=== PATIENT | female | born 1950 | race Caucasian/White ===

== ENCOUNTER 2020-04-04 19:05 | Inpatient (IN) | payer OTHER ==
[~2020-04-04] VITALS: Ht 61 cm; Wt 5.0 kg
[2020-04-04] MEDS ORDERED: [UNRECOGNIZED DRUG - OTHER] (19:50)
[2020-04-04] MEDS ORDERED: NEXIUM (19:51)
--- NOTE | 2020-04-04 19:52 | NUR ---
PTE SE RECIBE POR DOLOR DE [place] DOLOR COSTADO DERECHO Y NO PUEDE EXPECTORAL REFIERE PTE.
--- NOTE | 2020-04-04 22:10 | NUR ---
SE ORIENTA PTE SOBRE TX MEDICO EL CUAL REFIERE ENTENDER.SE LE EXTRAEN MUESTRAS BAJO MEDIDAS ASEPTICAS,SE CANALIZA Y SE ADMINISTRA MEDICAMENTO TUNDE ORDEN MEDICA.SE NOTIFICA CT PENDIENTE.
--- NOTE | 2020-04-05 06:49 | NUR ---
SE BRAIN COOL.
--- NOTE | 2020-04-05 07:00 | NUR ---
PTE ALERTA Y ORIENTADA POR SHADI DIMENSIONES. TIENE AREA DE VENOPUNCION PATENTE, CARLYN DE EDEMA Y ERITEMA CON IV FLUID DE .9NSS @125ML/HR. PENDIENTE ABG'S. CONSULTA CON DR.LUIS NEUMANN POR PULMONIA POR COVID. TIENE CANULA A 2LT Y TIENE ALBUTEROL CADA 6HR. PTE EN JARROD BAJA, BARANDAS ELEVADAS, FRENOS AJUSTADOS Y TIMBRE ACCESIBLE. SE MANTIENE BAJO OBSERVACION POR CAMBIOS.
--- NOTE | 2020-04-05 07:40 | NUR ---
SE RECIBE PACIENTE FEMENINA DE 69 ANOS DE EDAD. AL MOMENTO DE AUTUMN, PACIENTE SE ENCUENTRA EN CAMA CON BARANDAS ELEVADAS DESPIERTA Y ALERTA. AREA DE [id number] PATENTE EN BRAZO DERECHO CON ANGIO#2O BAJANDO UN 0.9NSS A 150ML POR HORA CARLYN DE EDEMAS, ENROJECIMIENTO Y DOLOR AL TACTO. SE OBSERVA PACIENTE CON CANULA NASAL A 2 LITROS. SE EVELIA SIGNOS VITALES Y SE ORIENTA A PACIENTES SOBRE MEDIDAS DE SEGURIDAD. PACIENTE REFIERE ENTENDER SOBRE LO ORIENTADO, TAMBIEN REFIERE SENTIRSE MEJOR. SE MANTIENE PACIENTE EN OBSERVACION PARA CAMBIOS SIGNIFICATIVOS EN HERRERA CONDICION
[2020-04-08] MEDS ORDERED: IRBESARTAN75 MG (08:08)
[2020-04-08] MEDS ORDERED: NEXIUM2.5 MG (08:09)
[2020-04-14] MEDS ORDERED: ZINC SULFATE220 M2 PO (10:59)
[2020-04-14] MEDS ORDERED: VITAMIN C500 M1 PO (10:59)
[2020-04-14] MEDS ORDERED: PEPCID AC20 MG PO (11:00)
[2020-04-14] MEDS ORDERED: MELATONIN5 M2 PO (11:00)
[2020-04-14] MEDS ORDERED: ECOTRIN81 MG PO (11:10)
[2020-04-14] MEDS ORDERED: VITAMIN D3125 MC2 PO (11:10)
== END 2020-04-14 14:20 | disposition home or self-care (01) | DRG 177 ==
LOC: ER 19:05 → MEDJ 04-05 11:31
PROVIDERS: ADMIT Internal Medicine; ATTEND Internal Medicine
PROC: 4A033R1 Measurement of Arterial Saturation, Peripheral, Percutaneous Approach (ICD-10-PCS; principal; 2020-04-05)
PROC: 8E0ZXY6 Isolation (ICD-10-PCS; 2020-04-05)
PROC: 3E0F7SF Introduction of Other Gas into Respiratory Tract, Via Natural or Artificial Opening (ICD-10-PCS; 2020-04-05)
PROC: 4A12X4Z Monitoring of Cardiac Electrical Activity, External Approach (ICD-10-PCS; 2020-04-05)
PROC: 3E0F7GC Introduction of Other Therapeutic Substance into Respiratory Tract, Via Natural or Artificial Opening (ICD-10-PCS; 2020-04-07)
DX: U07.1 COVID-19 (principal); J12.89 Other viral pneumonia; I10 Essential (primary) hypertension; R19.7 Diarrhea, unspecified; R09.02 Hypoxemia

== ENCOUNTER 2021-02-10 10:58 | Outpatient (CLI) | payer OTHER ==
[~2021-02-10 10:58] MED LIST: ECOTRIN81 MG PO; IRBESARTAN75 MG; MELATONIN5 M2 PO; NEXIUM; NEXIUM2.5 MG; PEPCID AC20 MG PO; VITAMIN C500 M1 PO; VITAMIN D3125 MC2 PO; ZINC SULFATE220 M2 PO; [UNRECOGNIZED DRUG - OTHER]
== END 2021-02-10 11:08 | disposition home or self-care (01) ==
LOC: TOM 10:58
PROVIDERS: ATTEND Internal Medicine Pulmonary Disease
DX: J12.81 Pneumonia due to SARS-associated coronavirus (principal); Z86.16 Personal history of COVID-19; R05 Cough; R06.02 Shortness of breath

== ENCOUNTER 2021-04-15 08:42 | Outpatient (CLI) | payer OTHER | END 2021-04-15 08:43 | disposition home or self-care (01) | LOC: TOM 08:42 | PROVIDERS: ATTEND Internal Medicine | DX: K57.90 Diverticulosis of intestine, part unspecified, without perforation or abscess without bleeding (principal); K44.9 Diaphragmatic hernia without obstruction or gangrene | CPT/HCPCS: 74177; Q9965 ==

== ENCOUNTER 2021-11-11 10:49 | Inpatient (IN) | payer OTHER ==
[~2021-11-11] VITALS: Ht 157.5 cm; Wt 80.3 kg
[2021-11-11] MEDS ORDERED: PROTONIX20 MG PO (11:03)
[2021-11-11] MEDS ORDERED: AVAPRO75 MG PO (11:04)
== END 2021-11-15 17:29 | disposition home or self-care (01) | DRG 392 ==
LOC: ER 10:49 → SEC-K 22:43 → MEDJ 22:43 → SEC-K 11-12 05:05 → MEDJ 11-12 05:07
PROVIDERS: ADMIT Internal Medicine; ATTEND Internal Medicine
PROC: BW21YZZ Computerized Tomography (CT Scan) of Abdomen and Pelvis using Other Contrast (ICD-10-PCS; principal; 2021-11-11)
DX: K57.32 Diverticulitis of large intestine without perforation or abscess without bleeding (principal); R10.32 Left lower quadrant pain; D72.828 Other elevated white blood cell count; Z20.822 Contact with and (suspected) exposure to COVID-19; Z91.89 Other specified personal risk factors, not elsewhere classified